=== PATIENT | female | born 1985 | race Caucasian/White ===

== ENCOUNTER 2021-06-03 05:31 | Inpatient (IN) ==
[2021-06-03] MEDS ORDERED: FAMOTIDINE 20 MG/2 ML VIAL IV ONE (05:49)
[2021-06-03] MEDS ORDERED: CITRIC ACID/SODIUM CITRATE 30 ML UDCUP PO ONE (05:49)
[2021-06-03] MEDS ORDERED: ceFAZolin 3,000 MG in SYRINGE 1 EACH IV ONE (06:00)
[2021-06-03] MEDS: LACTATED RINGERS 1,000 ML IV PRN ×2 (06:15→17:50)
[2021-06-03 06:23] LABS: Basophils # 0.1 10*3/uL (0.0-0.2); Basophils % 0.5 % (0.0-0.8); Eosinophils # 0.2 10*3/uL (0.0-0.87); Eosinophils % 1.4 % (0.00-10.9); Hematocrit 35.6 VOL% (35.7-47.0); Hemoglobin 11.6 GM/DL (12.0-16.0); Immature Granulocytes % 0.4 %; Immature Granulocytes Absolute 0.04 #; Lymphocytes # 2.1 10*3/uL (1.4-4.0); Lymphocytes % 18.9 % (21.3-54.2); Mean Corpuscular HGB Conc 32.6 GM/DL (32-36); Mean Corpuscular Volume 96.7 FL (87-102); Mean Platelet Volume 9.8 FL (9.6-12.0); Monocytes % 5.4 % (1.7-12.7); Neutrophils % 73.4 % (38.7-73.9); Platelet Count 321 T/CUMM (130-400); Red Blood Count 3.68 MC/CUMM (3.8-5.5); Red Cell Distribution Width 13.1 % (9.3-17.3)
[2021-06-03] MEDS ORDERED: OXYTOCIN/LR 20 UNIT/1,000 ML BAG IV ONE ×5 (06:29→11:41)
[2021-06-03] MEDS ORDERED: CARBOPROST TROMETHAMINE 250 MCG/ML AMP IM ONE (06:29)
[2021-06-03] MEDS ORDERED: miSOPROStoL 200 MCG TABLET ONE (06:29)
[2021-06-03] MEDS ORDERED: METHYLERGONOVINE 0.2 MG/1 ML AMP ONE (06:29)
[2021-06-03] MEDS ORDERED: TRANEXAMIC ACID 1,000 MG/10 ML VIAL ONE (06:29)
[2021-06-03] MEDS ORDERED: BUPIVACAINE SPINAL 0.75% 2 ML AMP SPINAL ONE (06:41)
[2021-06-03 06:42] LABS: Albumin 2.5 G/DL (3.4-5.0); Bilirubin,Total 1.1 MG/DL (0.20-1.00); Calcium 8.4 MG/DL (8.5-10.1); Osmolality,Calculated 276.4 MOS/KG (273-304); Potassium 3.7 MMOL/L (3.5-5.1); Total Protein 7.3 G/DL (6.4-8.2)
[2021-06-03] MEDS ORDERED: DEXAMETHASONE 4 MG/1 ML VIAL ONE (08:03)
[2021-06-03] MEDS ORDERED: ONDANSETRON 4 MG/2 ML VIAL ONE (08:03)
[2021-06-03] MEDS ORDERED: propofoL 200 MG/20 ML VIAL IV ONE ×2 (08:13→09:06)
[2021-06-03] MEDS ORDERED: LIDOCAINE 2% 5 ML VIAL ONE (08:13)
[2021-06-03] MEDS ORDERED: KETAMINE 500 MG/10 ML VIAL ONE (08:43)
[2021-06-03] MEDS ORDERED: GLYCOPYRROLATE 0.4 MG/2 ML VIAL ONE (08:44)
[2021-06-03 08:48] LABS: Cord Arterial Blood HCO3 22.3 MMOL/L
[2021-06-03 08:51] LABS: Cord Venous Blood HCO3 24.6 MMOL/L; Cord Venous Blood PCO2 47.4 MMHG; Cord Venous Blood PO2 28.7
[2021-06-03 09:36] LABS: Bacteria,Urine Occasional /HPF (Few); Bilirubin,Urine Negative (Negative); Blood, Urine Negative (Negative); Glucose,Urine (UA) Negative (Negative); Ketones,Urine Negative (Negative); Mucus,Urine Many /LPF (Occasional); Nitrite,Urine Negative (Negative); Protein,Urine 30 MG/DL; RBC,Urine 1 /HPF (0-4); Squamous Epithelial Cell,Urine Occasional /HPF (0-10); Urine Appearance CLEAR (Clear); Urine Color Amber (Yellow); Urine Urobilinogen < 2.0 EU/DL (0.2-1.0)
[2021-06-03 09:41] LABS: Barbiturates Screen,Urine Negative (Negative); Benzodiazepines Screen,Urine Negative (Negative); Cannabinoid Screen,Urine Positive (Negative); Opiate Screen,Urine Negative (Negative); Phencyclidine Screen,Urine Negative (Negative)
[2021-06-03] MEDS ORDERED: HYDROmorphone 2 MG/1 ML VIAL IV ONE (10:20)
[2021-06-03] MEDS: KETOROLAC 30 MG/1 ML VIAL IV SCH ×3 (10:43→23:02)
[2021-06-03] MEDS ORDERED: IBUPROFEN 800 MG TABLET PO PRN (11:41)
[2021-06-03] MEDS ORDERED: RHO(D) IMMUNE GLOBULIN 300 MCG SYRINGE IM ONE (11:41)
[2021-06-03] MEDS ORDERED: ONDANSETRON 4 MG/2 ML VIAL IV PRN (11:41)
[2021-06-03] MEDS ORDERED: SIMETHICONE CHEW 80 MG TABLET PO PRN (11:41)
[2021-06-03] MEDS ORDERED: ACETAMINOPHEN 325 MG TABLET PO PRN (11:41)
[2021-06-03] MEDS: ACETAMINOPHEN 500 MG TABLET PO SCH ×2 (16:33→23:09)
[2021-06-03] MEDS: NICOTINE 21 MG/24 HR PATCH TRANSDERM PRN (23:00)
[2021-06-03] MEDS: DOCUSATE SODIUM 100 MG CAPSULE PO SCH (23:01)
[2021-06-03 23:10] LABS: Basophils % 0.1 % (0.0-0.8); Eosinophils % 0.2 % (0.00-10.9); Hematocrit 29.8 VOL% (35.7-47.0); Immature Granulocytes % 0.4 %; Immature Granulocytes Absolute 0.06 #; Lymphocytes # 1.8 10*3/uL (1.4-4.0); Lymphocytes % 11.6 % (21.3-54.2); Mean Corpuscular HGB Conc 33.6 GM/DL (32-36); Mean Corpuscular Volume 94.3 FL (87-102); Mean Platelet Volume 9.7 FL (9.6-12.0); Monocytes % 5.9 % (1.7-12.7); Neutrophils % 81.8 % (38.7-73.9); Platelet Count 281 T/CUMM (130-400); Red Blood Count 3.16 MC/CUMM (3.8-5.5); Red Cell Distribution Width 13.1 % (9.3-17.3); White Blood Count 15.3 T/CUMM (4-12)
[2021-06-04] MEDS: ACETAMINOPHEN 500 MG TABLET PO SCH ×2 (01:35→08:42)
[2021-06-04] MEDS: KETOROLAC 30 MG/1 ML VIAL IV SCH (04:29)
[2021-06-04 06:18] LABS: Basophils % 0.3 % (0.0-0.8); Eosinophils # 0.1 10*3/uL (0.0-0.87); Eosinophils % 0.7 % (0.00-10.9); Hematocrit 30.6 VOL% (35.7-47.0); Immature Granulocytes % 0.5 %; Immature Granulocytes Absolute 0.06 #; Lymphocytes # 2.4 10*3/uL (1.4-4.0); Lymphocytes % 18.6 % (21.3-54.2); Mean Corpuscular HGB Conc 32.7 GM/DL (32-36); Mean Corpuscular Volume 96.2 FL (87-102); Mean Platelet Volume 9.9 FL (9.6-12.0); Neutrophils % 73.9 % (38.7-73.9); Platelet Count 306 T/CUMM (130-400); Red Blood Count 3.18 MC/CUMM (3.8-5.5); Red Cell Distribution Width 13.2 % (9.3-17.3); White Blood Count 13.1 T/CUMM (4-12)
[2021-06-04] MEDS: MULTIVITAMIN (PRENATAL) TABLET PO SCH (08:48)
[2021-06-04] MEDS: DOCUSATE SODIUM 100 MG CAPSULE PO SCH ×2 (08:49→20:02)
[2021-06-04] MEDS: MAGNESIUM HYDROXIDE SUSP 30 ML UDCUP PO PRN ×2 (08:52→20:02)
[2021-06-04] MEDS ORDERED: SERTRALINE 50 MG TABLET PO SCH (11:20)
[2021-06-04] MEDS: FLUoxetine 20 MG CAPSULE PO SCH (12:31)
[2021-06-04] MEDS: IBUPROFEN 800 MG TABLET PO PRN (20:02)
[2021-06-04] MEDS: NICOTINE 21 MG/24 HR PATCH TRANSDERM PRN (22:24)
[2021-06-05] MEDS: IBUPROFEN 800 MG TABLET PO PRN ×2 (03:44→09:15)
[2021-06-05 08:35] VITALS: BP 125/88
[2021-06-05] MEDS: MAGNESIUM HYDROXIDE SUSP 30 ML UDCUP PO PRN (09:15)
[2021-06-05] MEDS: FLUoxetine 20 MG CAPSULE PO SCH (09:15)
[2021-06-05] MEDS: DOCUSATE SODIUM 100 MG CAPSULE PO SCH (09:15)
[2021-06-05] MEDS: MULTIVITAMIN (PRENATAL) TABLET PO SCH (09:15)
[2021-06-05] MEDS ORDERED: DIPH/TET/ACEL PERT BOOSTER VACCINE 0.5 ML VIAL IM ONE (11:31)
== END 2021-06-05 13:05 | disposition home or self-care (01) | DRG 539 ==
LOC: N.LD 05:31 → N.OB 12:20
PROVIDERS: ADMIT Obstetrics & Gynecology; ATTEND Obstetrics & Gynecology